=== PATIENT | female | born 1995 | race Caucasian/White ===

== ENCOUNTER 2019-02-14 08:04 | Day surgery (SDC) | payer BC ==
[2019-02-14] MEDS ORDERED: FENTAnyl 50 MCG/ML VIAL (08:52)
[2019-02-14] MEDS ORDERED: PROPOFOL 20 ML (08:52)
[2019-02-14] MEDS ORDERED: LIDOCAINE 2% (SDV) 5 ML INJ (08:52)
[2019-02-14] MEDS ORDERED: MEPERIDINE 25 MG INJ IV (09:30)
[2019-02-14] MEDS ORDERED: FENTAnyl 50 MCG/ML VIAL IV ×3 (09:30)
[2019-02-14] MEDS ORDERED: ONDANSETRON 4 MG INJ IV (09:30)
[2019-02-14] MEDS ORDERED: OXYCODONE/ACETAMINOPHEN (5/325) TAB PO ×2 (09:30)
[2019-02-14] MEDS ORDERED: DEXAMETHASONE 4 MG/ML 5 ML INJ (09:48)
[2019-02-14] MEDS ORDERED: CEFAZOLIN 1 GM INJ (09:48)
[2019-02-14] MEDS ORDERED: FAMOTIDINE 20 MG INJ (09:48)
[2019-02-14] MEDS ORDERED: ONDANSETRON 4 MG INJ (09:48)
[2019-02-14] MEDS ORDERED: CEFAZOLIN 2 GM/50 ML (PMX) 50 ML IVPB (15:00)
[2019-02-14] MEDS ORDERED: LACTATED RINGER'S 1,000 ML IV (15:00)
== END 2019-02-14 12:49 | disposition home or self-care (01) ==
LOC: SDS 08:04
DX: Q51.5 Agenesis and aplasia of cervix (principal)
CPT/HCPCS: 58558; 93005